=== PATIENT | female | born 1935 | race Two or more races ===

== ENCOUNTER 2024-01-05 16:28 | Inpatient (IN) | payer MEDICARE, BC ==
[~2024-01-05] VITALS: Ht 160 cm; Wt 59.9 kg
[~2024-01-05 16:28] MED LIST: BRIM5DRO2 OP; BRIN10DR EACHEYE; [UNRECOGNIZED DRUG - CODE] OP
[2024-01-05] MEDS: CEFEPIME 1 GM in IV D5W 50 ML IV ONE (17:00)
[2024-01-05] MEDS: IV LR 1000 ML 1,000 ML BAG IV ONE (17:00)
[2024-01-05 17:23] LABS: BASOPHILS % (AUTO) 0.3 % (0.0-2.0); EOSINOPHILS # (AUTO) 0.1 K/uL (0.0-0.7); EOSINOPHILS % (AUTO) 0.5 % (0.0-6.0); HEMATOCRIT 41 % (33-45); HEMOGLOBIN 13.7 g/dL (11.5-14.8); LYMPHOCYTES # (AUTO) 0.9 K/uL (0.8-4.8); MEAN CORPUSCULAR HEMOGLOBIN 30 PG (26.0-33.0); MEAN CORPUSCULAR HGB CONC 33 g/dl (31.0-36.0); MEAN CORPUSCULAR VOLUME 91 fL (82-100); MONOCYTES # (AUTO) 0.8 K/uL (0.1-1.30); MONOCYTES % (AUTO) 6.2 % (2.0-12.0); NEUTROPHILS # (AUTO) 11.3 K/uL (1.8-8.9); PLATELET COUNT (AUTO) 218 K/uL (150-450); RED BLOOD CELL COUNT(AUTO) 4.52 MIL/uL (4.0-5.2); RED CELL DISTRIBUTION WIDTH 14.5 % (11.5-15.0); WHITE BLOOD COUNT (AUTO) 13.2 K/uL (4.3-11.0)
[2024-01-05] MEDS: VANCOMYCIN 1 GM in IV D5W 250 ML IV ONE (17:30)
[2024-01-05 17:36] LABS: CALCIUM, SERUM 9.7 mg/dL (8.5-10.1); CARBON DIOXIDE 29 mmol/L (21-32); CHLORIDE 103 mmol/L (98-107); GLUCOSE 146 mg/dL (74-106); POTASSIUM 3.8 mmol/L (3.5-5.1); SODIUM SERUM 139 mmol/L (136-145); UREA NITROGEN, BLOOD 18 mg/dL (7-18)
[2024-01-05 17:41] LABS: LACTIC ACID 1.2 mmol/L (0.4-2.0)
[2024-01-05 17:57] LABS: PARTIAL THROMBOPLASTIN TIME 26.5 SEC (24.3-34.3); PROTHROMBIN TIME 10.6 SECS (9.2-11.1)
[2024-01-05 18:02] LABS: ALANINE AMINOTRANSFERASE 22 U/L (12-78); ALBUMIN 3.5 g/dL (3.4-5.0); ALKALINE PHOSPHATASE 89 U/L (46-116); ASPARTATE AMINOTRANSFERASE 17 U/L (15-37); BILIRUBIN,DIRECT 0.2 mg/dL (0.0-0.2); BILIRUBIN,TOTAL 0.6 mg/dL (0.2-1.0); TOTAL PROTEIN, SERUM 7.5 g/dL (6.4-8.2)
[2024-01-05] MEDS ORDERED: ASPI-1420 PO (18:19)
[2024-01-05] MEDS ORDERED: ATOR10TA PO (18:19)
[2024-01-05] MEDS ORDERED: CHOL100043 PO (18:19)
[2024-01-05] MEDS ORDERED: FLUT16SP BNOSTRILS (18:19)
[2024-01-05] MEDS ORDERED: MAGN400O6 PO (18:19)
[2024-01-05] MEDS ORDERED: POLY17PO4 PO (18:19)
[2024-01-05] MEDS ORDERED: CYAN-51 PO (18:19)
[2024-01-05] MEDS ORDERED: LATA7.5D EACHEYE (18:19)
[2024-01-05] MEDS ORDERED: QUET300T2 PO (18:19)
[2024-01-05] MEDS ORDERED: BRIM5DRO EACHEYE (18:19)
[2024-01-05] MEDS ORDERED: FERR325T28 PO (18:19)
[2024-01-05] MEDS ORDERED: TOLT2CAP PO (18:19)
[2024-01-05] MEDS ORDERED: OMEG1CAP PO (18:19)
[2024-01-05] MEDS ORDERED: GUAI1TBM19 PO (18:19)
[2024-01-05] MEDS ORDERED: PANT40TA49 PO (18:19)
[2024-01-05] MEDS ORDERED: ASCO500T87 PO (18:19)
[2024-01-05] MEDS ORDERED: CALC-903 PO (18:19)
[2024-01-05] MEDS ORDERED: MULT1TAB70 PO (18:19)
[2024-01-05] MEDS ORDERED: [UNRECOGNIZED DRUG - OTHER] PO (18:19)
[2024-01-05] MEDS ORDERED: LOPE2TAB25 PO (18:19)
[2024-01-05] MEDS ORDERED: MAG-135 PO (18:19)
[2024-01-05] MEDS ORDERED: AMOX500C2 PO (18:19)
[2024-01-05] MEDS ORDERED: BISA10SU11 RC (18:19)
[2024-01-05] MEDS ORDERED: MEMA14CA5 PO (18:19)
[2024-01-05] MEDS ORDERED: ACET-868 PO (18:19)
[2024-01-05] MEDS ORDERED: CINN500C2 PO (18:19)
[2024-01-05] MEDS ORDERED: WHEA144P PO (18:19)
[2024-01-05] MEDS ORDERED: [UNRECOGNIZED DRUG - OTHER] PO (18:19)
[2024-01-05] MEDS ORDERED: FLUTICASONE PROPIONATE 16 GM BOTTLE NS PRN (19:30)
[2024-01-05] MEDS ORDERED: Z GUARD REMEDY 4 OZ OINT TP PRN (19:30)
[2024-01-05] MEDS ORDERED: BISACODYL SUPP (10 MG) 10 MG/SUPP.RECT SUPP.RECT RC PRN (19:30)
[2024-01-05] MEDS ORDERED: HYDROCODONE/APAP 5/325MG TABLET PO PRN (19:30)
[2024-01-05] MEDS ORDERED: ONDANSETRON HCL/PF 4 MG/2 ML VIAL IVP PRN (19:30)
[2024-01-05] MEDS ORDERED: POLYETHYLENE GLYCOL 3350 17 GM POWD.PACK PO PRN (19:30)
[2024-01-05] MEDS ORDERED: MAG HYDROX/AL HYDROX/SIMETH 30 ML UDC PO PRN (19:30)
[2024-01-05] MEDS ORDERED: MAGNESIUM HYDROXIDE 30 ML UDC PO PRN (19:30)
[2024-01-05] MEDS ORDERED: ACETAMINOPHEN 325 MG TABLET PO PRN (19:30)
[2024-01-05] MEDS: LATANOPROST EYE DROP 0.005% 2.5 ML BOTTLE EACHEYE SCH (22:00)
[2024-01-05 22:33] LABS: APPEARANCE,URINE CLEAR (CLEAR); BILIRUBIN,URINE NEGATIVE (NEGATIVE); BLOOD, URINE NEGATIVE Ery/uL (NEGATIVE); COLOR,URINE YELLOW (YELLOW); KETONES,URINE NEGATIVE (NEGATIVE); LEUKOCYTE ESTERASE ,URINE NEGATIVE (NEGATIVE); NITRITE, URINE NEGATIVE (NEGATIVE); PH,URINE 5.5 (5.0-8.0); PROTEIN,URINE NEGATIVE (NEGATIVE); UGLUCOSE NEGATIVE (NEGATIVE); UROBILINOGEN,URINE 0.2 EU/dL (0.2)
[2024-01-06] MEDS: ATORVASTATIN 10 MG TABLET PO SCH (00:22)
[2024-01-06] MEDS: QUETIAPINE FUMARATE 100 MG TABLET PO SCH (00:23)
[2024-01-06] MEDS: ENOXAPARIN SODIUM 30 MG/0.3 ML DISP.SYRIN SQ SCH (00:24)
[2024-01-06] MEDS ORDERED: CEFEPIME 1 GM VIAL ONE (00:40)
[2024-01-06] MEDS: CEFEPIME 1 GM in IV D5W 50 ML IV SCH (00:53)
[2024-01-06 06:48] LABS: BASOPHILS % (AUTO) 0.3 % (0.0-2.0); EOSINOPHILS # (AUTO) 0.2 K/uL (0.0-0.7); EOSINOPHILS % (AUTO) 1.3 % (0.0-6.0); HEMATOCRIT 35 % (33-45); HEMOGLOBIN 11.9 g/dL (11.5-14.8); LYMPHOCYTES # (AUTO) 2.3 K/uL (0.8-4.8); LYMPHOCYTES % (AUTO) 15.4 % (20.0-44.0); MEAN CORPUSCULAR HEMOGLOBIN 30 PG (26.0-33.0); MEAN CORPUSCULAR HGB CONC 34 g/dl (31.0-36.0); MEAN CORPUSCULAR VOLUME 90 fL (82-100); MONOCYTES # (AUTO) 1.1 K/uL (0.1-1.30); MONOCYTES % (AUTO) 7.2 % (2.0-12.0); NEUTROPHILS # (AUTO) 11.2 K/uL (1.8-8.9); NEUTROPHILS % (AUTO) 75.8 % (43.0-81.0); PLATELET COUNT (AUTO) 194 K/uL (150-450); RED BLOOD CELL COUNT(AUTO) 3.91 MIL/uL (4.0-5.2); RED CELL DISTRIBUTION WIDTH 14.1 % (11.5-15.0); WHITE BLOOD COUNT (AUTO) 14.8 K/uL (4.3-11.0)
[2024-01-06 07:13] LABS: CALCIUM, SERUM 8.8 mg/dL (8.5-10.1); CARBON DIOXIDE 28 mmol/L (21-32); CHLORIDE 104 mmol/L (98-107); CREATININE 0.6 mg/dL (0.6-1.3); GLUCOSE 108 mg/dL (74-106); MAGNESIUM 1.9 mg/dL (1.8-2.4); PHOSPHORUS 3.7 mg/dL (2.5-4.9); POTASSIUM 3.5 mmol/L (3.5-5.1); SODIUM SERUM 138 mmol/L (136-145); UREA NITROGEN, BLOOD 12 mg/dL (7-18)
[2024-01-06] MEDS: BRINZOLAMIDE 1 % OPHTH SOLN 10 ML BOTTLE EACHEYE SCH (08:11)
[2024-01-06] MEDS: PANTOPRAZOLE 40 MG TABLET.DR PO SCH (08:12)
[2024-01-06] MEDS: BRIMONIDINE TARTRATE OPHT SOLN 5 ML BOTTLE EACHEYE SCH (08:12)
[2024-01-06] MEDS: ASPIRIN EC 81 MG TABLET.DR PO SCH (08:17)
[2024-01-06] MEDS: FERROUS SULFATE (325 MG) 325 MG/TAB TABLET PO SCH (08:17)
[2024-01-06] MEDS: MULTIVITAMINS,THERAGRAN 1 UDTAB TABLET PO SCH (08:17)
[2024-01-06] MEDS: CALCIUM CARB 600MG /VIT D 1 EACH TABLET PO SCH (08:17)
[2024-01-06] MEDS: MEMANTINE HCL 5 MG TABLET PO SCH (08:17)
[2024-01-06] MEDS: CHOLECALCIFEROL 1,000 UNIT TABLET (VIT D3) PO SCH (08:17)
[2024-01-06] MEDS: TOLTERODINE 2 MG CAP.SR PO SCH (08:17)
[2024-01-06] MEDS: CYANOCOBALAMIN 500 MCG TABLET PO SCH (08:17)
[2024-01-06] MEDS: ASCORBIC ACID 500 MG TABLET PO SCH (08:17)
[2024-01-06] MEDS: VANCOMYCIN 1 GM in IV D5W 250ml IV SCH (17:30)
[2024-01-06 20:00] VITALS: BP 108/70; TEMP 97.9; O2SAT 95
[2024-01-06] MEDS: CEFEPIME HCL 2 GM in IV D5W 100 ML IV SCH (21:24)
[2024-01-07] VITALS: BP 103/75; TEMP 98; O2SAT 96
[2024-01-07 04:00] VITALS: BP 110/69; TEMP 98.3; O2SAT 96
[2024-01-07 07:51] LABS: BASOPHILS # (AUTO) 0.1 K/uL (0.0-0.2); BASOPHILS % (AUTO) 0.6 % (0.0-2.0); EOSINOPHILS # (AUTO) 0.4 K/uL (0.0-0.7); EOSINOPHILS % (AUTO) 3.9 % (0.0-6.0); HEMATOCRIT 36 % (33-45); LYMPHOCYTES # (AUTO) 2.3 K/uL (0.8-4.8); LYMPHOCYTES % (AUTO) 21.9 % (20.0-44.0); MEAN CORPUSCULAR HEMOGLOBIN 31 PG (26.0-33.0); MEAN CORPUSCULAR HGB CONC 34 g/dl (31.0-36.0); MEAN CORPUSCULAR VOLUME 91 fL (82-100); MONOCYTES # (AUTO) 0.9 K/uL (0.1-1.30); MONOCYTES % (AUTO) 8.1 % (2.0-12.0); NEUTROPHILS % (AUTO) 65.5 % (43.0-81.0); PLATELET COUNT (AUTO) 206 K/uL (150-450); RED CELL DISTRIBUTION WIDTH 14.6 % (11.5-15.0); WHITE BLOOD COUNT (AUTO) 10.7 K/uL (4.3-11.0)
[2024-01-07 08:00] VITALS: BP 119/65; TEMP 97.6; O2SAT 96
[2024-01-07 08:07] LABS: CALCIUM, SERUM 9.2 mg/dL (8.5-10.1); CREATININE 0.6 mg/dL (0.6-1.3); POTASSIUM 3.6 mmol/L (3.5-5.1)
[2024-01-07 12:00] VITALS: BP 122/75; TEMP 97.3; O2SAT 96
[2024-01-07 16:00] VITALS: BP 123/67; TEMP 98.4; O2SAT 96
[2024-01-07 20:00] VITALS: BP 123/86; TEMP 98; O2SAT 97
[2024-01-08] VITALS: BP 121/82; TEMP 98; O2SAT 97
[2024-01-08 04:00] VITALS: BP 109/65; TEMP 99.8; O2SAT 96
[2024-01-08 07:20] LABS: CALCIUM, SERUM 9.3 mg/dL (8.5-10.1); CREATININE 0.7 mg/dL (0.6-1.3); POTASSIUM 3.9 mmol/L (3.5-5.1)
[2024-01-08 08:00] VITALS: BP 121/57; TEMP 98.1; O2SAT 95
[2024-01-08] MEDS: ENSURE ENLIVE 237 ML LIQUID (VANILLA) PO SCH (08:19)
[2024-01-08 12:00] VITALS: BP 129/65; TEMP 97.5; O2SAT 95
[2024-01-08 16:00] VITALS: BP 108/62; TEMP 98.6; O2SAT 95
[2024-01-08 20:00] VITALS: BP 121/60; TEMP 100.9; O2SAT 95
[2024-01-09] VITALS: BP 118/82; TEMP 97.3; O2SAT 95
[2024-01-09 04:00] VITALS: BP 127/68; TEMP 98.6; O2SAT 94
[2024-01-09 07:10] LABS: CALCIUM, SERUM 9.5 mg/dL (8.5-10.1); CREATININE 0.7 mg/dL (0.6-1.3); POTASSIUM 3.8 mmol/L (3.5-5.1)
[2024-01-09 08:00] VITALS: BP 105/67; TEMP 98.1; O2SAT 100
[2024-01-09 12:00] VITALS: BP 125/72; TEMP 98.4; O2SAT 100
== END 2024-01-09 16:15 | DRG 177 ==
LOC: ER 17:00 → TELE1 22:09 → MEDSG1 01-09 10:59
PROVIDERS: ADMIT Nurse Practitioner Acute Care; ATTEND Nurse Practitioner Acute Care
DX: J15.69 Pneumonia due to other Gram-negative bacteria (principal); G92.8 Other toxic encephalopathy; J96.01 Acute respiratory failure with hypoxia; D68.59 Other primary thrombophilia; Z20.822 Contact with and (suspected) exposure to COVID-19; F02.A0 Dementia in other diseases classified elsewhere, mild, without behavioral disturbance, psychotic disturbance, mood disturbance, and anxiety; G30.9 Alzheimer's disease, unspecified; E78.5 Hyperlipidemia, unspecified; N32.81 Overactive bladder; K21.9 Gastro-esophageal reflux disease without esophagitis; H40.9 Unspecified glaucoma; Z74.09 Other reduced mobility; F09 Unspecified mental disorder due to known physiological condition; Z79.51 Long term (current) use of inhaled steroids; Z79.82 Long term (current) use of aspirin; E86.0 Dehydration; M41.9 Scoliosis, unspecified; Z96.642 Presence of left artificial hip joint; M85.80 Other specified disorders of bone density and structure, unspecified site; Y95 Nosocomial condition; Z88.6 Allergy status to analgesic agent; Z95.2 Presence of prosthetic heart valve; R53.1 Weakness; Z79.899 Other long term (current) drug therapy; Z87.19 Personal history of other diseases of the digestive system; Z88.5 Allergy status to narcotic agent; Z88.8 Allergy status to other drugs, medicaments and biological substances
CPT/HCPCS: 36415; 71045-TC; 80048-TC; 80076-TC; 83605-TC; 83735-TC; 83880; 84100-TC; 84484-TC; 85025-TC; 85730-TC; 87040-TC; 87081-TC; 87086-TC; 92526; 92611-TC; 93307-TC; 97112-TC; 97116-TC; 97530-TC; A4223; G0378; J0692; J1650; J3370; J7040; J7050; J7060; J7120

== ENCOUNTER 2024-04-26 09:43 | Emergency (ER) | payer MEDICARE, BC ==
[~2024-04-26] VITALS: Ht 162.6 cm; Wt 76.7 kg
[~2024-04-26 09:43] MED LIST changes: +ACET-868 PO; +AMOX500C2 PO; +ASCO500T87 PO; +ASPI-1420 PO; +ATOR10TA PO; +BISA10SU11 RC; +BRIM5DRO EACHEYE; -BRIM5DRO2 OP; +CALC-903 PO; +CHOL100043 PO; +CINN500C2 PO; +CYAN-51 PO; +FERR325T28 PO; +FLUT16SP BNOSTRILS; +GUAI1TBM19 PO; +LATA7.5D EACHEYE; +LOPE2TAB25 PO; +MAG-135 PO; +MAGN400O6 PO; +MEMA14CA5 PO; +MULT1TAB70 PO; +OMEG1CAP PO; +PANT40TA49 PO; +POLY17PO4 PO; +QUET300T2 PO; +TOLT2CAP PO; +WHEA144P PO; -[UNRECOGNIZED DRUG - CODE] OP; +[UNRECOGNIZED DRUG - OTHER] PO; +[UNRECOGNIZED DRUG - OTHER] PO
[2024-04-26] MEDS ORDERED: ACETAMINOPHEN 325 MG TABLET ONE (11:06)
[2024-04-26] MEDS: ACETAMINOPHEN 325 MG TABLET PO ONE (11:10)
[2024-04-26 14:33] VITALS: BP 111/52; TEMP 98.9; O2SAT 100
== END 2024-04-26 14:34 ==
LOC: ER 09:54
DX: S09.8XXA Other specified injuries of head, initial encounter (principal); M54.59 Other low back pain; M50.31 Other cervical disc degeneration, high cervical region; F03.90 Unspecified dementia, unspecified severity, without behavioral disturbance, psychotic disturbance, mood disturbance, and anxiety; I10 Essential (primary) hypertension; E78.5 Hyperlipidemia, unspecified; M41.9 Scoliosis, unspecified; Z88.6 Allergy status to analgesic agent; Z88.5 Allergy status to narcotic agent; Z88.8 Allergy status to other drugs, medicaments and biological substances; W01.198A Fall on same level from slipping, tripping and stumbling with subsequent striking against other object, initial encounter; Y93.89 Activity, other specified; Y92.89 Other specified places as the place of occurrence of the external cause; Y99.8 Other external cause status
CPT/HCPCS: 99284; 72125; 71045; 72100; 72170; 70450; 72192; A6403